=== PATIENT | female | born 1960 | race Caucasian/White ===

== ENCOUNTER 2017-01-31 23:59 | Emergency (ER) | payer BC ==
[~2017-01-31] VITALS: Ht 165.1 cm; Wt 84.1 kg
[2017-02-01 00:04] VITALS: BP 160/61; TEMP 97.9
[2017-02-01 00:47] LABS: PH 6 (5-8); SQUAMOUS EPITHELIAL 0-2 /hpf; URINE APPEARANCE Clear; URINE BACTERIA None Seen /hpf; URINE BILIRUBIN Negative (NEGATIVE); URINE BLOOD Negative (NEGATIVE); URINE COLOR Straw; URINE GLUCOSE Negative (NEGATIVE); URINE KETONE Negative (NEGATIVE); URINE RBC 0-2 /hpf; URINE UROBILINOGEN Negative (NEGATIVE); URINE WBC 0-2 /hpf
[2017-02-01] MEDS ORDERED: ESTRACE2 MG PO (01:37)
[2017-02-01] MEDS ORDERED: WELLBUTRIN SR150 M1 PO (01:37)
[2017-02-01] MEDS ORDERED: FLEXERIL 1010 MG/TAB PO (02:47)
[2017-02-01] MEDS ORDERED: NORCO 325 MG-7.1 TAB PO (02:47)
[2017-02-01 03:04] VITALS: PULSE 86
== END 2017-02-01 03:05 | disposition home or self-care (01) ==
LOC: COL.ER 23:59
PROVIDERS: Nurse Practitioner
DX: M54.5 Low back pain (principal); Z90.710 Acquired absence of both cervix and uterus

== ENCOUNTER → 2017-02-22 | Outpatient (CLI) | payer BC ==
[~2017-02-22] MED LIST: ESTRACE2 MG PO; FLEXERIL 1010 MG/TAB PO; NORCO 325 MG-7.1 TAB PO; WELLBUTRIN SR150 M1 PO
[2017-02-22 16:54] LABS: BASO # 0.1 (0.0-0.2); BASO % 1.1 % (0.0-2.0); EOS # 0.2 (0.0-0.7); EOS % 2.6 % (0-4.0); GRAN # 4.4 (1.4-6.5); HEMATOCRIT 40.9 % (37.0-47.0); HEMOGLOBIN 13.5 g/dl (12.5-16.0); LYMPH # 1.4 (1.2-3.4); LYMPH % 21.2 % (20.0-51.0); MEAN CELL VOLUME 95 fl (80.0-100.0); MEAN CORPUSCULAR HEMOGLOBIN 31 pg (27.0-31.0); MEAN CORPUSCULAR HGB CONC 33 g/dl (33.0-37.0); MEAN PLATELET VOLUME 10.6 fl (7.4-10.4); MONO # 0.5 (0.1-0.6); MONO % 7.6 % (1.7-9.3); PLATELET COUNT 293 K/mm3 (130-400); REDCELL DISTRIBUTION WIDTH-CV 12.2 % (11.5-14.5); WHITE BLOOD COUNT 6.6 K/mm3 (4.8-10.8)
[2017-02-22 17:08] LABS: ADJUSTED CALCIUM 9.2 mg/dL (8.4-10.2); ALBUMIN 4.1 gm/dL (3.5-5.0); BILIRUBIN,TOTAL 0.5 mg/dL (0.0-1.0); CALCIUM 9.3 mg/dL (8.4-10.2); CREATININE, serum 0.83 mg/dL (0.52-1.25); POTASSIUM 3.8 mmol/L (3.4-5.0)
== END ==
LOC: COL.LAB 09:57
PROVIDERS: Family Medicine
DX: E66.9 Obesity, unspecified (principal)

== ENCOUNTER 2017-03-03 08:45 | Outpatient (RCR) | payer BC | END 2017-03-08 12:49 | LOC: WSPT 08:45 | DX: M54.5 Low back pain (principal); G89.29 Other chronic pain; Z96.651 Presence of right artificial knee joint ==

== ENCOUNTER → 2017-10-03 | Outpatient (CLI) | payer BC | LOC: COL.RAD 08:48 | DX: M17.12 Unilateral primary osteoarthritis, left knee (principal) ==

== ENCOUNTER → 2018-02-07 | Outpatient (CLI) | payer BC | LOC: COL.RAD 15:43 | DX: M79.89 Other specified soft tissue disorders (principal); M25.552 Pain in left hip; Z87.81 Personal history of (healed) traumatic fracture ==

== ENCOUNTER → 2018-04-26 | Outpatient (CLI) | payer BC | LOC: MC.RAD 07:05 | DX: Z12.31 Encounter for screening mammogram for malignant neoplasm of breast (principal) ==

== ENCOUNTER → 2019-10-23 | Outpatient (CLI) | payer BC | LOC: MC.RAD 17:52 | DX: Z12.31 Encounter for screening mammogram for malignant neoplasm of breast (principal) ==

== ENCOUNTER → 2020-11-16 | Outpatient (CLI) | payer BC | LOC: MC.RAD 11:08 | DX: Z12.31 Encounter for screening mammogram for malignant neoplasm of breast (principal) ==

== ENCOUNTER 2021-11-09 07:25 | Day surgery (SDC) | payer BC ==
[~2021-11-09] VITALS: Ht 165.1 cm; Wt 80.4 kg
[2021-11-09] MEDS ORDERED: PRINZIDE 12.5 M1 TAB PO (07:47)
[2021-11-09 08:06] VITALS: BP 120/78; PULSE 74; TEMP 97.7
[2021-11-09 09:15] VITALS: BP 104/70; PULSE 82; TEMP 97.6
--- NOTE | 2021-11-09 09:15 | NUR ---
Pt arrived via cart, ambulated with x2 assist to chair; tolerating PO fluid and oral intake, VSS.
[2021-11-09 09:30] VITALS: BP 101/70; PULSE 66
[2021-11-09 09:45] VITALS: BP 112/71; PULSE 68
== END 2021-11-09 10:00 ==
LOC: SDCO 07:25
DX: Z12.11 Encounter for screening for malignant neoplasm of colon (principal); K57.30 Diverticulosis of large intestine without perforation or abscess without bleeding
CPT/HCPCS: J2704; J7120

== ENCOUNTER → 2021-11-24 | Outpatient (CLI) | payer BC ==
[~2021-11-24] MED LIST changes: +PRINZIDE 12.5 M1 TAB PO
== END ==
LOC: MC.RAD 07:55
DX: Z12.31 Encounter for screening mammogram for malignant neoplasm of breast (principal)

== ENCOUNTER → 2024-01-10 | Outpatient (CLI) | payer BC | LOC: MC.RAD 07:40 | DX: Z12.31 Encounter for screening mammogram for malignant neoplasm of breast (principal) ==